=== PATIENT | female | born 1945 | race Caucasian/White ===

== ENCOUNTER 2018-07-03 07:24 | Outpatient (CLI) | payer OTHER, SELFPAY ==
[2018-07-03 08:35] LABS: Cholesterol 186 mg/dL (50-200); HDL Cholesterol 75 mg/dL (40-60); LDL CHOLESTEROL 99 mg/dL (<100); Triglyceride 58 mg/dL (30-150)
[2018-07-03 08:45] LABS: Anion Gap 8.7 mmol/L (3-11); BUN 23 mg/dL (7-18); CO2 28.3 mmol/L (21.0-32.0); CREATININE 1.01 mg/dL (0.55-1.02); Calcium 9.4 mg/dL (8.5-10.1); Chloride 105 mmol/L (98-107); Estimated GFR 54.03 (mL/min/1.73m2); Glucose 88 mg/dL (70-100); Potassium 4.7 mmol/L (3.5-5.1); Sodium 142 mmol/L (136-145)
== END 2018-07-03 07:44 ==
PROVIDERS: Urology; PCP Internal Medicine; Visit Provider Internal Medicine
DX: I10 Essential (primary) hypertension (principal); R31.29 Other microscopic hematuria
CPT/HCPCS: 36415; 80048; 80061; 83721; 82565

== ENCOUNTER 2018-07-06 01:36 | Outpatient (CLI) | payer OTHER, SELFPAY ==
--- NOTE | 2018-07-06 12:34 | DI.CT_ITS ---
SYMPTOMS/DIAGNOSIS: MICROSCOPIC HEMATURIA, R31.29, ? MASS OR STONE CT OF THE ABDOMEN AND PELVIS: Comparison is made with [id number]. Images were performed without IV contrast followed by IV contrast during the venous phase as well as 7 minute delayed images. No urinary tract calculi, mass or hydronephrosis are seen. There are no collecting system filling defects. The bladder is unremarkable. The kidneys show normal size and parenchymal thickness. The lung bases are clear. A small cyst is seen at the posterior right lobe of the liver. The gallbladder, spleen, pancreas and adrenals are unremarkable. Sigmoid diverticulosis is present. There is no evidence of diverticulitis. There is a moderate quantity of stool. The appendix appears normal. The uterus has a postmenopausal appearance. IMPRESSION: Negative CT of the abdomen and pelvis. No evidence of urinary tract calculi, mass or hydronephrosis.
[2018-07-06] MEDS: Omnipaque 350 MG/ML 100 ML BTL IJ (13:36)
[2018-07-06] MEDS: Normal Saline Flush 10 ML SYR IVP (13:36)
== END 2018-07-06 01:56 ==
PROVIDERS: PCP Internal Medicine; Visit Provider Urology
DX: R31.29 Other microscopic hematuria (principal); K76.89 Other specified diseases of liver; K57.30 Diverticulosis of large intestine without perforation or abscess without bleeding
CPT/HCPCS: 74178; J3490

== ENCOUNTER 2019-11-05 02:15 | Outpatient (CLI) | payer OTHER, SELFPAY ==
[2019-11-05 15:34] LABS: Bilirubin Negative (Negative); Blood Moderate (Negative); Clarity Clear (Clear); Glucose Negative (Negative); Ketones Trace mg/dL (Negative); Leukocyte Esterase Negative (Negative); Nitrite Negative (Negative); Specific Gravity >= 1.030 (1.005-1.025); Urobilinogen 0.2 EU/dL (Up TO 0.2); pH 5.5 (5-8)
[2019-11-05 15:54] LABS: Bacteria Negative HPF (Negative); C & S Indicated? No; Casts Negative LPF (Negative); Crystals Negative HPF (Negative); Epithelial Cells Negative HPF (Negative); Mucus Negative (Negative); Other Cells Negative (Negative); WBC 0-2 HPF (0-5)
[2019-11-05 16:09] LABS: Anion Gap 6.4 mmol/L (3-11); BUN 24 mg/dL (7-18); CO2 29.6 mmol/L (21.0-32.0); Calcium 9.7 mg/dL (8.5-10.1); Chloride 102 mmol/L (98-107); Estimated GFR 54.35 (mL/min/1.73m2); Glucose 80 mg/dL (74-106); Potassium 4.2 mmol/L (3.5-5.1); Sodium 138 mmol/L (136-145)
[2019-11-08 10:09] LABS: Hepatitis C Ab w Rflx HCV PCR Negative (Negative)
== END 2019-11-05 02:35 ==
PROVIDERS: Urology; PCP Internal Medicine; Visit Provider Internal Medicine
DX: I10 Essential (primary) hypertension (principal); R31.29 Other microscopic hematuria; Z11.59 Encounter for screening for other viral diseases
CPT/HCPCS: 36415; 80048; 86803; 81003; 81015

== ENCOUNTER 2019-12-15 01:26 | Outpatient (CLI) | payer OTHER, SELFPAY ==
--- NOTE | 2019-12-15 13:15 | DI.MAMMO_ITS ---
EXAM: MG MAMMO SCREENING 60 MIN DUR CLINICAL HISTORY: breast cancer screening Z85.3 PERSONAL HX BREAST CANCER TECHNIQUE: Mammograms were interpreted according to the usual protocol including computer analysis w [employer] CAD system, tomosynthesis and C-view imaging. COMPARISON: FINDINGS: Breasts are heterogeneously dense. Prior left lumpectomy noted. There is no mass or clumped microca lcification seen. Comparison with multiple previous mammograms including August 2017 shows no signifi cant interval change. IMPRESSION: No specific evidence of malignancy at this time. Routine screening examinations are suggested at yea rly intervals due to the history of breast carcinoma. Category: BI-RADS Cat 1 - Negative Breast Density - Category C - Heterogeneously dense
== END 2019-12-15 01:46 ==
PROVIDERS: PCP Internal Medicine; Visit Provider Internal Medicine
DX: Z12.31 Encounter for screening mammogram for malignant neoplasm of breast (principal); Z85.3 Personal history of malignant neoplasm of breast
CPT/HCPCS: 77063; 77067

== ENCOUNTER 2020-04-10 07:40 | Outpatient (REF) | payer OTHER, SELFPAY ==
[2020-04-12 17:54] LABS: COVID-19 RT-PCR Result NEGATIVE (Negative)
== END 2020-04-10 08:00 ==
LOC: LBO 07:40
PROVIDERS: PCP Internal Medicine; Visit Provider Nurse Practitioner Family
DX: Z11.59 Encounter for screening for other viral diseases (principal)
CPT/HCPCS: U0003

== ENCOUNTER 2021-02-19 08:30 | Outpatient (CLI) | payer OTHER, SELFPAY ==
--- NOTE | 2021-02-19 08:15 | DI.RAD_ITS ---
Exam(s) XR KNEE RT 4V AP,LAT,LYUBOV,PAT EXAM: XR KNEE RT 4V AP,LAT,LYUBOV,PAT CLINICAL HISTORY: injury. TECHNIQUE: 2D digital imaging was performed. COMPARISON: No exams were available for comparison FINDINGS: BONES: There is a longitudinal lucency at the lateral aspect of the patella suspicious for nondisplac ed fracture. No bony destructive lesion is seen. There is an enthesophyte at the superior aspect of the patella. Mild spurring is seen at the posterior patella. JOINTS: The knee is normally aligned. There is a small joint effusion. There is mild narrowing of th e lateral femoral tibial joint. SOFT TISSUE: Normal. IMPRESSION: Nondisplaced fracture of the patella. DATA REPOSITORY: RADIATION DOSE DELIVERED:
== END 2021-02-19 08:31 | disposition home or self-care (01) ==
LOC: DIORS 08:30
PROVIDERS: PCP Internal Medicine; Referring Provider Internal Medicine; Visit Provider Physician Assistant Surgical
DX: X58.XXXA Exposure to other specified factors, initial encounter; S82.024A Nondisplaced longitudinal fracture of right patella, initial encounter for closed fracture; M25.761 Osteophyte, right knee
CPT/HCPCS: 73564

== ENCOUNTER 2021-03-19 09:32 | Outpatient (CLI) | payer OTHER, MEDICARE, SELFPAY ==
--- NOTE | 2021-03-19 08:15 | DI.RAD_ITS ---
Exam(s) XR KNEE RT 1V EXAM: XR KNEE RT 1V CLINICAL HISTORY: right patella fracture. TECHNIQUE: 2D digital imaging was performed. COMPARISON: CR XR KNEE RT 4V AP,LAT,LYUBOV,PAT from 02/19/2021 FINDINGS: Single merchant's view of the right knee again reveals the previously described fracture line in the lateral facet. When compared to the merchant's view of 02/19/2021 the fracture line is still visible and indeed appears slightly wider at the present time. Clinically indicated additional views can be performed. IMPRESSION: DATA REPOSITORY: RADIATION DOSE DELIVERED:
== END 2021-03-19 09:33 | disposition home or self-care (01) ==
LOC: DIORS 09:33
PROVIDERS: PCP Internal Medicine; Referring Provider Internal Medicine; Visit Provider Physician Assistant
DX: S82.024D Nondisplaced longitudinal fracture of right patella, subsequent encounter for closed fracture with routine healing; W19.XXXD Unspecified fall, subsequent encounter
CPT/HCPCS: 99212; 73560

== ENCOUNTER 2021-03-20 03:58 | Outpatient (CLI) | payer MEDICARE, SELFPAY ==
[2021-03-20 08:10] LABS: Bilirubin Negative (Negative); Blood Moderate (Negative); Clarity Clear (Clear); Glucose Negative (Negative); Ketones Negative (Negative); Leukocyte Esterase Trace (Negative); Nitrite Negative (Negative); Urobilinogen 0.2 EU/dL (Up TO 0.2)
[2021-03-20 08:25] LABS: Bacteria Few HPF (Negative); C & S Indicated? Yes; Casts Negative LPF (Negative); Crystals Negative HPF (Negative); Epithelial Cells Few HPF (Negative); Mucus Trace (Negative); Other Cells Few Renal (Negative); RBC 0-2 HPF (0-2)
[2021-03-20 08:41] LABS: Anion Gap 6.1 mmol/L (3-11); BUN 24 mg/dL (7-18); CO2 30.9 mmol/L (21.0-32.0); CREATININE 1.1 mg/dL (0.55-1.02); Calcium 9.6 mg/dL (8.5-10.1); Calculated LDL 121 mg/dL (<100); Chloride 107 mmol/L (98-107); Cholesterol 204 mg/dL (<200); Estimated GFR 48.55 (mL/min/1.73m2); Glucose 90 mg/dL (74-106); HDL Cholesterol 72 mg/dL (40-60); Potassium 4.9 mmol/L (3.5-5.1); Sodium 144 mmol/L (136-145); Triglyceride 57 mg/dL (<150)
== END 2021-03-20 03:59 | disposition home or self-care (01) ==
LOC: LBO 03:58
PROVIDERS: Urology; PCP Internal Medicine; Visit Provider Internal Medicine
DX: I10 Essential (primary) hypertension (principal); R31.29 Other microscopic hematuria
CPT/HCPCS: 36415; 80048; 80061; 81003; 81015; 87086

== ENCOUNTER 2021-05-04 03:33 | Outpatient (CLI) | payer MEDICARE, SELFPAY ==
[2021-05-04 10:28] LABS: BUN 18 mg/dL (7-18); Calcium 9.4 mg/dL (8.5-10.1); Glucose 142 mg/dL (74-106); Sodium 139 mmol/L (136-145)
[2021-05-04 10:29] LABS: Anion Gap 6.4 mmol/L (3-11); CO2 29.6 mmol/L (21.0-32.0); Chloride 103 mmol/L (98-107)
== END 2021-05-04 03:34 | disposition home or self-care (01) ==
LOC: LBO 03:33
PROVIDERS: PCP Internal Medicine; Visit Provider Internal Medicine
DX: I10 Essential (primary) hypertension (principal)
CPT/HCPCS: 36415; 80048

== ENCOUNTER 2021-06-11 08:54 | Outpatient (CLI) | payer OTHER, MEDICARE, SELFPAY ==
--- NOTE | 2021-06-11 08:15 | DI.RAD_ITS ---
Exam(s) XR KNEE RT 1V EXAM: XR KNEE RT 1V INDICATION: history of patella fracture. COMPARISON: CR XR KNEE RT 1V from 03/19/2021 TECHNIQUE: 2D digital imaging was performed. FINDINGS: There has been continued healing at the fracture seen at the lateral aspect of the patella. No new a bnormalities. DATA REPOSITORY: RADIATION DOSE DELIVERED:
== END 2021-06-11 08:55 | disposition home or self-care (01) ==
LOC: DIORS 08:54
PROVIDERS: PCP Internal Medicine; Referring Provider Internal Medicine; Visit Provider Student in an Organized Health Care Education/Training Program
DX: S82.001D Unspecified fracture of right patella, subsequent encounter for closed fracture with routine healing (principal); X58.XXXD Exposure to other specified factors, subsequent encounter
CPT/HCPCS: 99212; 73560

== ENCOUNTER → 2021-11-29 01:46 | Outpatient (CLI) | payer MEDICARE, OTHER, SELFPAY ==
--- NOTE | 2021-11-29 07:45 | DI.DEXA_ITS ---
Exam(s) XR DEXA BONE DENSITY W/WO EDWINA EXAM: XR DEXA BONE DENSITY W/WO EDWINA CLINICAL HISTORY: f/u osteopenia,SCREENING FOR OSTEOPOROSIS IN POSTMENOPAUSAL WOMAN,Z78.0 TECHNIQUE: Routine DEXA evaluation of the lumbar spine, hip, or forearm. COMPARISON: Compared to prior DEXA scan April 2016 FINDINGS: Performed on a HoloPerfect Memory unit. Lateral image: No compression fracture evident. Lumbar Spine total T-score: -2.4. Prior reading in 2016 was -2.0 Hip total T-score:-2.1. Prior 2016 reading was -1.7. Independent reading at the level of the femoral neck yields at T-score of -2.2. Forearm total T-score: -2.4 IMPRESSION: Bone mineral density measures in the osteopenia range. Fracture risk is moderate. Note: Any spine fracture indicates 5x risk for subsequent spine fracture and 2x risk for subsequent h ip fracture. World Health Organization criteria for BMD interpretation classify patients: Normal...... T- Score at or above -1.0 Osteopenic... T- Score between -1.0 and -2.5 Osteoporosis... T-Score at or below -2.5
--- NOTE | 2021-11-29 07:45 | DI.MAMMO_ITS ---
Exam(s) MG MAMMO SCREENING 60 MIN DUR EXAM: MG MAMMO SCREENING 60 MIN DUR CLINICAL HISTORY: breast cancer screening,PERSONAL H/O BREAST CA,Z85.3. TECHNIQUE: Bilateral full field digital CC and MLO mammographic images were obtained with 3D tomosyn thesis and utilizing computer aided detection (CAD). Also performed additional spot compression view of the right breast. COMPARISON: Prior mammograms were reviewed, the most recent being November 2019. This patient has prior remote lumpectomy of the left breast, apparently 1989 FINDINGS: The fibroglandular tissue pattern is again noted be dense, this somewhat decreasing the sensitivity o f the mammogram for finding hidden underlying lesions. There are no new obvious radiographic findings in left breast. In medial aspect of right breast there is an asymmetric density appears slightly prominent studies. This persists on spot compression views. Ultrasound recommended. There are no malignant-appearing m icrocalcification groups is region nor elsewhere in either breast. There is no significant architectural distortion nor skin thickening-retraction. IMPRESSION: Dense bilateral fibroglandular tissue. Asymmetric densities posteromedially in the right breast. Sp ot compression views and ultrasound recommended BI-RADS Category 0 - Assessment Incomplete: Need additional imaging evaluation Breast Density - Category C - Heterogeneously dense Breast density Category C or D implies that the patient has dense breast tissue. Dense breast tissue can make it harder to find cancer on a mammogram. Dense breast tissue is also associated with an incr eased risk of breast cancer. This information about the result of the mammogram report was provided to the patient to raise their awareness. Use this report when you speak with the patient about their risks for breast cancer, which includes their family history. At that time, you may recommend additional screening tests (Ultrasoun d or MRI) as these tests may add significant information. A negative radiographic report should not delay biopsy if a dominant or clinically suspicious mass is present. Up to ten percent of cancers are not identified on mammography. A negative report may reinforce clinical impression. Adenosis and dense breasts may obscure an underlying neoplasm. False positive reports average 6 to 10%. Patient will receive a letter notifying them of these results.
== END ==
PROVIDERS: PCP Internal Medicine; Visit Provider Internal Medicine
DX: Z12.31 Encounter for screening mammogram for malignant neoplasm of breast (principal); Z13.820 Encounter for screening for osteoporosis; N64.89 Other specified disorders of breast; M85.80 Other specified disorders of bone density and structure, unspecified site; Z85.3 Personal history of malignant neoplasm of breast; Z78.0 Asymptomatic menopausal state; M94.9 Disorder of cartilage, unspecified
CPT/HCPCS: 77063; 77067; 77080

== ENCOUNTER → 2021-12-06 03:06 | Outpatient (CLI) | payer MEDICARE, SELFPAY ==
--- NOTE | 2021-12-06 09:30 | DI.US_ITS ---
Exam(s) US BREAST RT COMPLETE EXAM: US BREAST RT COMPLETE CLINICAL HISTORY: ASYMMETRIC DENSITIES POSTEROMEDIALLY IN RT BREAST, R92.8. TECHNIQUE: Complete ultrasound of the RIGHT breast was performed including all 4 quadrants, the retr oareolar region, and the ipsilateral axilla. COMPARISON: Prior mammograms were reviewed. This ultrasound is being performed pursuant to findings on recent mammogram of 11/29/2021. FINDINGS: There is no evidence of solid or significant cystic lesions in all 4 quadrants. No significant ultra sound findings the area described on the mammogram. IMPRESSION: Negative complete right breast ultrasound. Appropriate follow-up is repeat right breast mammogram in 6 months. BI-RADS Category 3 - 6 month - Probably Benign Finding: Recommend follow-up mammography in 6 months Breast Density - Category C - Heterogeneously dense Breast density Category C or D implies that the patient has dense breast tissue. Dense breast tissue can make it harder to find cancer on a mammogram. Dense breast tissue is also associated with an incr eased risk of breast cancer. This information about the result of the mammogram report was provided to the patient to raise their awareness. Use this report when you speak with the patient about their risks for breast cancer, which includes their family history. At that time, you may recommend additional screening tests (Ultrasoun d or MRI) as these tests may add significant information. A negative radiographic report should not delay biopsy if a dominant or clinically suspicious mass is present. Up to ten percent of cancers are not identified on mammography. A negative report may reinforce clinical impression. Adenosis and dense breasts may obscure an underlying neoplasm. False positive reports average 6 to 10%. Patient will receive a letter notifying them of these results.
== END ==
PROVIDERS: PCP Internal Medicine; Visit Provider Internal Medicine
DX: R92.2 Inconclusive mammogram (principal); R92.8 Other abnormal and inconclusive findings on diagnostic imaging of breast
CPT/HCPCS: 76642

== ENCOUNTER → 2021-12-20 07:58 | Outpatient (BNVA) | payer MEDICARE, SELFPAY | PROVIDERS: PCP Internal Medicine; Referring Provider Internal Medicine; Visit Provider Surgery | DX: Z12.11 Encounter for screening for malignant neoplasm of colon (principal) ==

== ENCOUNTER 2021-12-31 06:24 | Day surgery (SDC) | payer MEDICARE, SELFPAY ==
--- NOTE | 2021-12-30 18:43 | W.ANESPRE ---
General Info Date of Service Date Performed: 12/31/21 Height: 5 ft 7.5 in Weight: 58.173 kg Body Mass Index (BMI): 19.8 Surgical Procedure: Operation Date: 12/31/21 07:35 Proposed Procedure Side Surgeon p Colonoscopy Naya Abarca MD Meds Allergies and Home Medications Allergies Allergy/AdvReac Type Severity Reaction Status Date / Time Horse/Equine Containing Allergy Unknown Verified 12/27/21 12:55 Products Home Medication Medication Instructions Recorded EZ tears 1 PO 10/31/20 cyclosporine 0.05 % eye drops 1 drp ophthalmic (eye) Q12H 03/19/21 (Restasis MultiDose) Calcium 650mg with Vitamin C 500mg 1 cap PO DAILY 11/21/21 Soft Chew multivitamin gummy 1 cap PO DAILY 11/21/21 bisacodyl 5 mg tablet,delayed 5 mg PO ONCE #4 tabs 12/20/21 release (Dulcolax (bisacodyl)) polyethylene glycol 3350 17 17 g PO ONCE #238 grams 12/20/21 gram/dose oral powder amlodipine 5 mg tablet See Rx Instructions .Route 12/28/21 .COMPLEX #90 tabs losartan 25 mg tablet See Rx Instructions .Route 12/28/21 .COMPLEX #90 tabs Current Visit Medications: Current Medications Generic Name Dose Route Start Last Admin Trade Name Vannessa PRN Reason Stop Dose Admin Ringer's Solution 1,000 mls @ 80 mls/hr 12/31/21 06:00 IV 01/27/22 23:59 INFUSION ZEESHAN IV Miscellaneous Supplies 1 each 12/31/21 06:00 Iv Access IV 01/27/22 23:59 DIRECTED ZEESHAN Sodium Chloride 0 ml 12/31/21 06:00 Normal Saline Flush 10 Ml Syr IV 01/27/22 23:59 PRN PRN Sodium Chloride 0 ml 12/31/21 06:00 Normal Saline 10 Ml Vial IJ 01/27/22 23:59 DIRECTED PRN Sterile Water 0 ml 12/31/21 06:00 Water,Injection,Sterile 10 Ml Vial IJ 01/27/22 23:59 DIRECTED PRN PFSH Active Problems Active Problems: Problem Status Onset Code Risk for coronary artery disease greater than 20% in next 10 years per [place] score 2020 Z91.89 SARS-CoV-2 positive 11/02/21 U07.1 Screening for colon cancer Z12.11 Medical History Medical History Basal cell carcinoma (BCC) of [place]a n[place] Mohs micro[place]ic [place] [facility] [place] [facility] [place]gt dorsal nose Deviated nasal septum (06/13/16) Disorder of bone and cartilage, unspecified (08/23/11) T - 2.0 in 2016 Encounter for screening for other viral diseases Essential hypertension (11/03/13) Hypercholesterolemia Knee injury Personal history of breast cancer (08/23/11) Rhinitis, chronic (06/13/16) Right patella fracture Sensorineural hearing loss, unilateral (06/13/16) Skin lesion of left arm (03/09/15) excision left upper arm. squamous cell carcinoma, margins negative Surgical History Surgical History Breast, Lumpectomy (L) axillary node dissection, no isseus with lympadema- No issues with IV starts or BP Excision of skin on left upper extremity (03/09/15) Dr. Naya Abarca Final pathologic diagnosis: -Squamous cell carcinoma, well-differentiated, invasive -Margins negative for squamous cell carcinoma -Squamous cell carcinoma present approximately 1.0mm from closest (9 o'clock with suture designated 12 o'clock) margin. H/O Mohs micrographic surgery for skin cancer of left ala nasi. (basal cell carcinoma). 08/13/18 Open Carpal Tunnel release S/P colonoscopy Tonsillectomy and adenoidectomy Tobacco Smoking/Tobacco Use Status: Never Alcohol Alcohol Intake: current Alcohol intake frequency: a few times a month Substance Use Substance use: Never Substance use type: does not use Vital Signs and Lab Results Vital Signs Most Recent Vital Signs in EMR: Temp Pulse Resp BP Pulse Ox 36.6 C 60 16 111/73 100 12/31/21 06:33 12/31/21 06:33 12/31/21 06:33 12/31/21 06:33 12/31/21 06:33 Lab Results Blood Type / Crossmatch: No Data to Display Complete Blood Count: No Data to Display Complete Metabolic Panel: No Data to Display Liver Function Panel: No Data to Display Coagulation Panel: No Data to Display Cardiac Panel: No Data to Display Arterial Blood Gas: No Data to Display Venous Blood Gas: No Data to Display Pancreas Panel: No Data to Display Thyroid Panel: No Data to Display Infectious Disease: No Data to Display Blood Cultures: No Data to Display Toxicology Panel: No Data to Display Anesthesia Assessment and Plan Anesthesia History Personal History: No History of Anesthesia Complications Family History: No Family History of Anesthesia Complications Exercise Tolerance Exercise Tolerance: Metabolic Equivalents>4 Cardiac & Pulmonary Exam Cardiac Exam: Normal S1/S2 Heart Sounds Pulmonary Exam: Clear Bilateral Breath Sounds Implantable Cardiac Device Does patient have a Pacemaker or an ICD?: No Airway Exam Known Difficult Airway: No Mallampati Class: 2 Mouth Opening: Normal (> 3cm) Thyromental Distance: Greater than 3 cm Neck Range of Motion: Full ROM Neck Circumference: Normal Teeth Condition: Normal Dentition ASA Classification ASA Score: ASA 2 Emergency Case?: No NPO Status NPO Status: NPO Clears >2 hours, Solids >8 hours Anesthesia Plan Resuscitation Status: Full Code Anesthesia Technique: General Anesthesia Airway Planned: Natural Airway Monitors Used: Standard Monitors Preoperative Comments:: 76 yo female for screening colo. Sig PMHx: HTN (amlodipine, losartan),no other major.
--- NOTE | 2021-12-31 06:15 | COLE_ITS ---
Colonoscopy Report Date of procedure: 12/31/21 Pre-op diagnosis general: Colon Cancer Screening Post-op diagnosis procedure note: other (Diverticulosis) Procedure: Colonoscopy Surgeon: Naya Abarac Anesthesia Type: General:No Airway Estimated blood loss (mL): 0 Pathology: none sent Complications: None Disposition: same day Indications: Eduardo is here today to discuss another screening colonoscopy.? Her last colonoscopy was 10 years ago and was normal.? She has not had any changes in bowel habits, melena, hematochezia or unintentional weight loss.? She has no family history of colon cancer.? The procedure was explained in detail as well as the prep.? Risks, benefits and complications have been reviewed. Complications include but are not limited to bleeding, pain, perforation, missed small lesion/polyp, sore throat, aspiration and adverse reaction to the medi cations. Questions were entertained and answered to their satisfaction and they wished to proceed. No guarantees were given or implied. Proceed with colonoscopy under sedation Prep: Miralax/Dulcolax Procedure Start Time: :27 Procedure End Time: :47 Retraction Time: 11 minutes Findings: Bustamante diverticulosis Procedure Description: After informed consent was obtained the patient was taken to the procedure room and placed in a left decubitous position. Monitors were applied and a time out was done. The patients name, date of , procedure, allergies to medications and metal in their body was reviewed. The patient was then sedated. Once sedated and comfortable a rectal exam was done. External exam was normal. Internal exam revealed a normal sphincter tone and no palpable masses. The scope was then introduced and retro-flexed. No internal hemorrhoids, polyps or masses were identified on retro-flexion. The scope was then advanced to the cecum without difficulty. The ileocecal vlave and appendiceal orifice were identified. The prep was adequate. The scope was then slowly retracted over 11 minutes back into the rectum. There were no polyps. There was moderate bustamante- diverticulosis noted. The scope was removed and the patient was woken up and taken back to Same day surgery in stable condition. The patient tolerated the procedure well and there were no immediate complications.
--- NOTE | 2021-12-31 06:16 | W.PM.DSUDISC ---
Discharge Plan Disposition Patient Disposition: HOME Condition: Good Discharge Details Reason For Visit: colon cancer screening Attending Provider: Naya Abarca Primary Care Provider: Kina Corrales Home Meds and New Rx's Prescriptions: Continued Restasis MultiDose 0.05 % drops 1 drp ophthalmic (eye) Q12H Calcium 650mg with Vitamin C 500mg Soft Chew 1 cap PO DAILY multivitamin gummy 1 cap PO DAILY EZ tears capsule 1 PO Rx Instructions: for dry eyes amlodipine 5 mg tablet See Rx Instructions .ROUTE .COMPLEX Qty: 90 0RF Dose Instruction: TAKE 1 TABLET BY MOUTH DAILY Rx Instructions: TAKE 1 TABLET BY MOUTH DAILY losartan 25 mg tablet See Rx Instructions .ROUTE .COMPLEX Qty: 90 0RF Dose Instruction: TAKE 1 TABLET BY MOUTH DAILY Rx Instructions: TAKE 1 TABLET BY MOUTH DAILY Discontinued bisacodyl [Dulcolax (bisacodyl)] 5 mg tablet,delayed release (DR/EC) 5 mg PO ONCE Qty: 4 0RF Rx Instructions: Take according to provider's instructions for colonoscopy prep. polyethylene glycol 3350 17 gram/dose powder 17 g PO ONCE Qty: 238 0RF Rx Instructions: To be taken as directed by prescriber's office for colonoscopy prep. Discharge Instructions Instructions: Diverticulosis (DC) Additional Instructions: Findings: Diverticulosis Follow up: as needed Please call if you develop: fevers >101.5 Nausea or Vomiting Abdominal pain that is not transient Rectal bleeding that is more then a tbsp A hard abdomen and inability to pass gas DAY SURGERY UNIT POST ENDOSCOPY INSTRUCTIONS Instructions for everyone who is given Anesthesia: For your safety, please do the following for the next 24 Hours: a. Do not drive or operate dangerous equipment b. Do not drink alcohol beverages or use any recreational drugs for the first 24 hours or while taking pain medications. The medications in your body may have a reaction that can be dangerous. c. Do not make any important decisions or sign any important papers 1. Generally there are no restrictions on your activity after a day or so has gone by, but you may feel a bit fatigued for a few days. 2. After you arrive home you may have a light meal and return to a normal diet as you can tolerate it without feeling sick to your stomach. 3. After surgery, you may feel pain or discomfort. This should be only transient, but if it persists please contact your doctor. 4. If there are any questions regarding the findings of your procedure, please feel free to contact your doctor. 6. If you are unable to contact your doctor with a problem, contact the hospital at [phone]. 7. Continue all your regular medications unless directed otherwise. I understand the above instructions and have no questions. Signature of Patient or Responsible Adult Escort Date/Time Name of Responsible Adult Escort Signature of Nurse Date/Time Activity:: Activity as Tolerated Diet:: high fiber diet Discharge Orders Discharge Orders: Discharge Order (Routine); Ordered 12/31/21 Ordered By: Naya Abarca
[2021-12-31 06:33] VITALS: BP 111/73; PULSE 60; RESP 16; TEMP 36.6; O2SAT 100
[2021-12-31] MEDS: Lactated Ringers 1,000 ML 80 ML IV (07:02)
[2021-12-31 07:08] VITALS: BMI 19.8
[2021-12-31 07:57] VITALS: BP 106/66; PULSE 51; RESP 16; TEMP 36.4; O2SAT 97
--- NOTE | 2021-12-31 08:14 | W.ANESPOSTOP ---
Postoperative Evaluation Date, Time and Location Date Performed: 12/31/21 Time Performed: 08:05 Patient Location: Day Surgery Unit Vital Signs Most Recent Imported Vital Signs: Most Recent Vital Signs Temp Pulse Resp BP Pulse Ox 36.4 C L 51 L 16 106/66 97 12/31/21 07:57 12/31/21 07:57 12/31/21 07:57 12/31/21 07:57 12/31/21 07:57 Pain Score Most Recent Pain Score: Most Recent Pain Score Pain Level 0 12/31/21 07:57 Assessment Mental Status: Awake (Alert & Oriented to Patient Baseline) Airway and Respiratory Function: Patent airway with normal (patient baseline) respiratory exam Cardiovascular Function: Hemodynamically Stable Hydration Status: Adequately Hydrated Nausea & Vomiting: No Nausea or Vomiting Pain: Pt. Denies Any Pain Peripheral Nerve Block: Patient did not receive a nerve block
[2021-12-31 08:25] VITALS: BP 134/80; PULSE 47; RESP 16; TEMP 36.4; O2SAT 97
== END 2021-12-31 09:26 | disposition home or self-care (01) ==
PROVIDERS: PCP Internal Medicine; Visit Provider Surgery
PROC: 0DJD8ZZ Inspection of Lower Intestinal Tract, Via Natural or Artificial Opening Endoscopic (ICD-10-PCS; CPT 45378; principal; 2021-12-31 07:30)
DX: Z12.11 Encounter for screening for malignant neoplasm of colon (principal); K57.30 Diverticulosis of large intestine without perforation or abscess without bleeding; I10 Essential (primary) hypertension; E78.00 Pure hypercholesterolemia, unspecified
CPT/HCPCS: G0121

== ENCOUNTER 2022-06-11 01:14 | Outpatient (CLI) | payer MEDICARE, SELFPAY ==
--- NOTE | 2022-06-11 06:45 | DI.US_ITS ---
Exam(s) MG MAMMO DIAGNOSTIC UNI US BREAST RT COMPLETE EXAM: MG MAMMO DIAGNOSTIC UNI-RIGHT AND COMPLETE RIGHT BREAST ULTRASOUND CLINICAL HISTORY: 6 month follow up,ASYMMETRIC DENSITY. TECHNIQUE: Unilateral spot mammographic images were obtained with 3D tomosynthesis technique and uti lizing computer aided detection (CAD). Complete right breast ultrasound was also performed including all 4 quadrants as well as the axillary region. COMPARISON: Prior mammograms were reviewed, the most recent being November 2021. FINDINGS: DIAGNOSTIC RIGHT BREAST MAMMOGRAM: On spot compression view the previously described asymmetric density medially in the right breast is again less concerning in appearance. COMPLETE RIGHT BREAST ULTRASOUND: There is again no evidence of solid or significant cystic lesions in all 4 quadrants of the right pal ast. Scanning of the right axilla is negative for adenopathy. IMPRESSION: No radiographic evidence of malignancy in the right breast Negative complete right breast ultrasound Appropriate follow-up is to keep this patient on her yearly mammogram schedule, this implying the nex t bilateral mammogram would be in November or December 2022 The patient was informed of the findings and follow-up recommendations prior to leaving the [facility] today. BI-RADS Category 2 - Benign Findings Breast Density - Category C - Heterogeneously dense Breast density Category C or D implies that the patient has dense breast tissue. Dense breast tissue can make it harder to find cancer on a mammogram. Dense breast tissue is also associated with an incr eased risk of breast cancer. This information about the result of the mammogram report was provided to the patient to raise their awareness. Use this report when you speak with the patient about their risks for breast cancer, which includes their family history. At that time, you may recommend additional screening tests (Ultrasoun d or MRI) as these tests may add significant information. A negative radiographic report should not delay biopsy if a dominant or clinically suspicious mass is present. Up to ten percent of cancers are not identified on mammography. A negative report may reinforce clinical impression. Adenosis and dense breasts may obscure an underlying neoplasm. False positive reports average 6 to 10%. Patient will receive a letter notifying them of these results.
== END 2022-06-11 01:34 ==
PROVIDERS: PCP Internal Medicine; Visit Provider Internal Medicine
DX: R92.8 Other abnormal and inconclusive findings on diagnostic imaging of breast (principal); Z12.31 Encounter for screening mammogram for malignant neoplasm of breast
CPT/HCPCS: 76642; 77061; 77065; G0279

== ENCOUNTER 2022-12-19 03:12 | Outpatient (CLI) | payer MEDICARE, SELFPAY ==
--- NOTE | 2022-12-19 11:05 | DI.MAMMO_ITS ---
Exam(s) MG MAMMO SCREENING 60 MIN DUR EXAM: MG MAMMO SCREENING 60 MIN DUR CLINICAL HISTORY: breast cancer screening,PERSONAL H/O BREAST CA,Z85.3 TECHNIQUE: Mammograms were interpreted according to the usual protocol including computer analysis w [employer] CAD system, tomosynthesis and C-view imaging. COMPARISON: 2012 through 2021 FINDINGS: The breasts are composed of heterogeneously dense fibroglandular densities, Breast Density category C . No suspicious masses or suspicious microcalcifications are seen. No skin thickening or abnormal axillary lymph nodes are seen. There has been no significant change from prior exams. IMPRESSION: BI-RADS Category 1, Negative mammogram. Yearly screening mammography is recommended. Breast Density Category C, heterogeneously Dense. The mammogram demonstrates the patient's breast tissue is dense. Dense breast tissue is very common a nd is not abnormal but dense breast tissue can make it harder to find cancer on a mammogram. Also, de nse breast tissue may increase breast cancer risk. This information about the result of the mammogram report was provided to the patient to raise their awareness. Use this report when you speak with the patient about their risks for breast cancer, which includes their family history. At that time, you may recommend additional screening tests (Ultrasound or MRI) as they might be useful based on their r isk. A negative radiographic report should not delay biopsy if a dominant or clinically suspicious mass is present. Up to ten percent of cancers are not identified on mammography. A negative report may reinforce clinical impression. Adenosis and dense breasts may obscure an underlying neoplasm. False positive reports average 6 to 10%.
== END 2022-12-19 03:32 ==
LOC: DI 03:13
PROVIDERS: PCP Nurse Practitioner Adult Health; Visit Provider Nurse Practitioner Adult Health
DX: Z85.3 Personal history of malignant neoplasm of breast (principal); Z12.31 Encounter for screening mammogram for malignant neoplasm of breast
CPT/HCPCS: 77063; 77067

== ENCOUNTER 2022-12-26 13:19 | Emergency (ER) | payer MEDICARE, SELFPAY ==
[2022-12-26 13:43] VITALS: BP 131/66; PULSE 53; RESP 16; O2SAT 98
--- NOTE | 2022-12-26 15:45 | DI.RAD_ITS ---
Exam(s) XR FINGER RT MIDDLE EXAM: XR FINGER RT MIDDLE CLINICAL HISTORY: distal lac, dorsal; crush car door. TECHNIQUE: 2D digital imaging was performed. Three views. COMPARISON: No exams were available for comparison FINDINGS: BONES: Nondisplaced fracture at base of distal phalanx. No bony destructive lesion is seen. JOINTS: No dislocation present. SOFT TISSUE: Gauze is noted overlying the distal aspect of the finger. Soft tissue air. No foreign body. IMPRESSION: Nondisplaced fracture distal phalanx. DATA REPOSITORY: RADIATION DOSE DELIVERED:
[2022-12-26] MEDS: Lidocaine/Epinephri/Tetracaine Topical Gel 3 ML TP (15:55)
--- NOTE | 2022-12-26 16:01 | ED.GENADUL_ITS ---
Discharge Plan Disposition Patient Disposition: Home Condition: Improving Discharge Details Clinical Impression: Finger laceration, Phalanx, distal fracture of finger Primary Care Provider: Sarah Zhang ED Provider: Alvaro Pearson Home Meds and New Rx's Prescriptions: New cephalexin 500 mg capsule 500 mg PO QID 3 Days Qty: 12 0RF No Action Restasis MultiDose 0.05 % drops 1 drp ophthalmic (eye) Q12H Calcium 650mg with Vitamin C 500mg Soft Chew 1 cap PO DAILY multivitamin gummy 1 cap PO DAILY Caltrate 600 plus D 600 mg-20 mcg (800 unit) tablet,chewable 1 tab PO BID Qty: 180 0RF EZ tears capsule 1 PO Rx Instructions: for dry eyes amlodipine 5 mg tablet See Rx Instructions .ROUTE .COMPLEX Qty: 90 3RF Dose Instruction: TAKE 1 TABLET BY MOUTH DAILY Rx Instructions: TAKE 1 TABLET BY MOUTH DAILY losartan 25 mg tablet See Rx Instructions .ROUTE .COMPLEX Qty: 90 3RF Dose Instruction: TAKE 1 TABLET BY MOUTH DAILY Rx Instructions: TAKE 1 TABLET BY MOUTH DAILY rosuvastatin 5 mg tablet 5 mg PO .every other day Qty: 45 3RF Discharge Instructions Instructions: Finger Fracture (ED), Finger Laceration (ED) Additional Instructions: Please keep wound clean and dry; please return for any signs of poor healing or signs of infection. Medical Decision Making 77-year-old female presents with 2 cm linear laceration to dorsal aspect of third distal phalanx with exposed subcutaneous tissue, no exposed neurovascular structures, flexion both distally and proximally intact, neurovascular exam of limb intact, Tdap up-to-date. Will apply topical anesthetic, will irrigate extensively Will obtain screening x-ray to assess for phalangeal fracture. Low suspicion for tendon involvement given normal examination. Will primarily closed with simple interrupted sutures. Home care instructions and return precautions to be given 17: 11 nondisplaced distal phalanx fracture, given history and physical and wound exploration it does not appear that the laceration communicates with the fracture however given location and potential for communication we will start empiric Keflex, will irrigate extensively and closed primarily. Will be placed in finger splint. Home care instructions and return precautions to be given 17: 47 wound irrigated, 3 x 4-0 Vicryl simple interrupted sutures, surgical glue applied to seal wound, patient started on prophylactic Keflex given nature of wound and underlying fracture. Will be placed in finger splint. Home care i nstructions and return precautions to be given. HPI General Date/Time Provider Initiated Documentation: 12/26/22 15:42 . HPI Narrative: 77-year-old female presents after accidentally slamming her finger in the car door, sustaining laceration to third digit of her right hand. Up-to-date on Tdap Related Data Home Medications Medication Instructions Recorded Confirmed EZ tears 1 PO 10/31/20 12/20/21 cyclosporine 0.05 % eye drops 1 drp ophthalmic (eye) Q12H 03/19/21 10/09/22 (Restasis MultiDose) Calcium 650mg with Vitamin C 500mg 1 cap PO DAILY 11/21/21 10/09/22 Soft Chew multivitamin gummy 1 cap PO DAILY 11/21/21 12/31/21 amlodipine 5 mg tablet See Rx Instructions .Route 07/04/22 10/09/22 .COMPLEX #90 tabs losartan 25 mg tablet See Rx Instructions .Route 07/04/22 10/09/22 .COMPLEX #90 tabs calcium carbonate 600 mg-vitamin 1 tab PO BID #180 tabs 10/09/22 10/09/22 D3 20 mcg (800 unit) chewable tablet (Caltrate 600 plus D) rosuvastatin 5 mg tablet 5 mg PO .every other day #45 tabs 10/17/22 cephalexin 500 mg capsule 500 mg PO QID 3 days #12 caps 12/26/22 Previous Rx's Medication Instructions Recorded amlodipine 5 mg tablet See Rx Instructions .Route 07/04/22 .COMPLEX #90 tabs losartan 25 mg tablet See Rx Instructions .Route 07/04/22 .COMPLEX #90 tabs calcium carbonate 600 mg-vitamin 1 tab PO BID #180 tabs 10/09/22 D3 20 mcg (800 unit) chewable tablet (Caltrate 600 plus D) rosuvastatin 5 mg tablet 5 mg PO .every other day #45 tabs 10/17/22 cephalexin 500 mg capsule 500 mg PO QID 3 days #12 caps 12/26/22 Allergies Allergy/AdvReac Type Severity Reaction Status Date / Time Horse/Equine Containing Allergy Unknown Verified 12/26/22 13:43 Products General Stated Complaint: Orthopedic AMIRA: 4 Review of Systems Narrative: Review of Systems Constitutional: negative Eyes: negative ENT: negative Cardiovascular: negative Respiratory: negative Gastrointestinal: negative : negative Musculoskeletal: negative Skin: Finger laceration Neurologic: negative Psych: negative PFSH All Active Problems (Updated 12/26/22 @ 17:49 by Alvaro Pearson MD) Finger laceration (Acute) Phalanx, distal fracture of finger (Acute) History of basal cell carcinoma (BCC) (Acute) Disorder of bone and cartilage, unspecified (Acute 08/23/11) T - 2.0 in 2016 Hypercholesterolemia (Acute) Essential hypertension (Chronic 11/03/13) Personal history of breast cancer (Chronic 08/23/11) s/p XRT; cont with mammography Risk for coronary artery disease greater than 20% in next 10 years per [place] score (Chronic 2020) 2020: 19.5% Screening for colon cancer (Acute ~2021) Medical History Basal cell carcinoma (BCC) of ala nasi (~2020) Mohs micrographic surgery. [facility] [place] 08/13/18. Mohs micrographic surgery, [facility] [place] 06/21/21 rgt dorsal nose Deviated nasal septum (06/13/16) Encounter for screening for other viral diseases Knee injury Rhinitis, chronic (06/13/16) Right patella fracture SARS-CoV-2 positive (11/02/21) Sensorineural hearing loss, unilateral (06/13/16) Skin lesion of left arm (03/09/15) excision left upper arm. squamous cell carcinoma, margins negative Surgical History Breast, Lumpectomy (L) axillary node dissection, no isseus with lympadema- No issues with IV starts or BP Excision of skin on left upper extremity (03/09/15) Dr. Naya Abarca Final pathologic diagnosis: -Squamous cell carcinoma, well-differentiated, invasive -Margins negative for squamous cell carcinoma -Squamous cell carcinoma present approximately 1.0mm from closest (9 o'clock with suture designated 12 o'clock) margin. H/O Mohs micrographic surgery for skin cancer of left ala nasi. (basal cell carcinoma). 08/13/18 Open Carpal Tunnel release S/P colonoscopy (~2021) Tonsillectomy and adenoidectomy Family History Mother , Old age Heart disease Diabetes Father , cardiac late 60s (nicotine) Heart disease heavy smoker Hypertension Aunt , 's; longevity in multiple relatives No problems noted. Social History Smoking/Tobacco Use Status: Never Smoking risk assessment performed?: Yes Alcohol Intake: current Alcohol Intake frequency: a few times a month Alcohol type: hard liquor Drug use: Never Substance use type: does not use Household members: spouse Housing: house Number of Children: 2 Communication Needs: Hard of Hearing Do you need help understanding health information?: Never current occupation: ASSISTANT COACH Do you think of yourself as: straight/heterosexual Current gender identity: female What is your relationship status?: Panel score (0-1 are the most socially isolated patients): 1 What type of physical activity do you participate in: walking Frequency: daily Seatbelt use: always Drive intox or ride w/intox 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 Working smoke detector in home: Yes Carbon monox detector in home: Yes Do you feel safe at home: Yes Do you feel safe in your relationship?: Yes Exam Narrative Exam Narrative: Physical Examination General: alert, awake, cooperative, resting comfortably, no acute distress HEENT: normocephalic, atraumatic; PERRL, EOM intact, conjunctiva normal; no nasal discharge; moist mucous membranes, oral and pharyngeal mucosa normal, tolerating secretions Neck: supple, trachea midline; full ROM Chest: normal to inspection Extremities: 2 cm linear laceration to dorsal aspect of distal phalanx of third digit of right hand, full flexion both proximally and distally intact sensation intact nailbed uninvolved, median radial and ulnar nerve distribution sensory exam intact, radial pulse intact. Remaining fingers and hand neurovascular exam intact Psych: Appropriate mood and affect Course Vital Signs Vital signs: Vital Signs Pulse 53 L 12/26/22 13:43 Respiratory Rate 16 12/26/22 13:43 Blood Pressure 131/66 12/26/22 13:43 Pulse Oximetry 98 12/26/22 13:43 Temperature Source Skin 12/26/22 13:43 Pulse 53 L 12/26/22 13:43 Respiratory Rate 16 12/26/22 13:43 Blood Pressure 131/66 12/26/22 13:43 Blood Pressure Position Sitting 12/26/22 13:43 Pulse Oximetry 98 12/26/22 13:43 Oxygen Delivery Method Room Air 12/26/22 13:43 Oxygen Flow Rate 0 12/26/22 13:43 Pain Level 1 12/26/22 13:43 Procedures Laceration Laceration 1: Site: hand Side (If applicable): right Size (cm): 2 Description: linear Depth: simple, single layer Local Anesthetic: other anesthetic (L ET ) Pre-repair: wound explored and irrigated extensively Skin layer closed with: vicryl Size (cm): 4-0 Number of sutures: 3 Technique: simple, interrupted
[2022-12-26] MEDS: Cephalexin 500 MG CAP PO (16:53)
== END 2022-12-26 18:05 | disposition home or self-care (01) ==
PROVIDERS: Emergency Provider Emergency Medicine; PCP Nurse Practitioner Adult Health
DX: S62.632A Displaced fracture of distal phalanx of right middle finger, initial encounter for closed fracture; S61.212A Laceration without foreign body of right middle finger without damage to nail, initial encounter; W22.8XXA Striking against or struck by other objects, initial encounter
CPT/HCPCS: 12001; 73140

== ENCOUNTER → 2023-07-24 10:27 | Outpatient (CLI) | payer MEDICARE, SELFPAY ==
--- NOTE | 2023-07-24 08:56 | DI.RAD_ITS ---
Exam(s) XR HIP PELVIS ADULT BL EXAM: XR HIP PELVIS ADULT BL CLINICAL HISTORY: Fall 07/10 with pain to R hip since then w/ WB M25.551 W19.XXXA FALL M85.80. TECHNIQUE: 2D digital imaging was performed. COMPARISON: No exams were available for comparison FINDINGS: 3 views No evidence of pelvic fracture. No hip joint space narrowing. No osteophytes. No osseous lesions. Incidentally noted is a somewhat abnormal bowel gas pattern in the left side of the pelvis probably i ndicating element of enteritis. IMPRESSION: No acute osseous findings in the pelvis and hips. Abnormal bowel gas pattern. DATA REPOSITORY: RADIATION DOSE DELIVERED:
== END ==
PROVIDERS: PCP Nurse Practitioner Adult Health; Visit Provider Nurse Practitioner Adult Health
DX: M25.551 Pain in right hip (principal); W19.XXXA Unspecified fall, initial encounter
CPT/HCPCS: 73521

== ENCOUNTER 2024-03-24 02:09 | Outpatient (CLI) | payer MEDICARE, SELFPAY ==
[2024-03-24 10:11] LABS: Anion Gap 5.5 mmol/L (3-11); BUN 22 mg/dL (7-18); CO2 31.5 mmol/L (21.0-32.0); Calcium 9.8 mg/dL (8.5-10.1); Calculated LDL 63 mg/dL (<100); Chloride 104 mmol/L (98-107); Cholesterol 146 mg/dL (<200); Estimated GFR 58.02 (mL/min/1.73m2); Glucose 85 mg/dL (74-106); HDL Cholesterol 72 mg/dL (40-60); Potassium 4.9 mmol/L (3.5-5.1); Sodium 141 mmol/L (136-145); Triglyceride 57 mg/dL (<150)
== END 2024-03-24 02:10 | disposition home or self-care (01) ==
LOC: LBO 02:09
PROVIDERS: PCP Nurse Practitioner Adult Health; Referring Provider Nurse Practitioner Adult Health; Visit Provider Nurse Practitioner Adult Health
DX: I10 Essential (primary) hypertension (principal); E78.00 Pure hypercholesterolemia, unspecified
CPT/HCPCS: 36415; 80048; 80061

== ENCOUNTER 2024-04-16 00:12 | Outpatient (CLI) | payer MEDICARE, SELFPAY ==
--- NOTE | 2024-04-16 06:45 | DI.MAMMO_ITS ---
Exam(s) MG MAMMO SCREENING 60 MIN DUR EXAM: MG MAMMO SCREENING 60 MIN DUR CLINICAL HISTORY: breast cancer screening,personal h/o breast ca,z85.3. TECHNIQUE: Bilateral full field digital CC and MLO mammographic images were obtained with 3D tomosyn thesis and utilizing computer aided detection (CAD). COMPARISON: Prior mammograms were reviewed. Prior ultrasound reviewed FINDINGS: Fibroglandular tissue pattern is again noted be moderately dense, this somewhat decreasing the sensit ivity of the mammogram for finding hidden underlying lesions. Some mild asymmetry in breast size is again noted, this related to remote left breast lumpectomy. Asymmetric densities are again noted in both breasts and appear unchanged. There are no obvious new spiculated masses nor new malignant appearing microcalcification groups. There is no significant architectural distortion nor skin thickening-retraction. IMPRESSION: Dense bilateral fibroglandular tissue. Stable benign-appearing findings. No radiographic evidence o f malignancy. BI-RADS Category 2 - Benign Findings Breast Density - Category C - Heterogeneously dense Breast density Category C or D implies that the patient has dense breast tissue. Dense breast tissue can make it harder to find cancer on a mammogram. Dense breast tissue is also associated with an incr eased risk of breast cancer. This information about the result of the mammogram report was provided to the patient to raise their awareness. Use this report when you speak with the patient about their risks for breast cancer, which includes their family history. At that time, you may recommend additional screening tests (Ultrasoun d or MRI) as these tests may add significant information. A negative radiographic report should not delay biopsy if a dominant or clinically suspicious mass is present. Up to ten percent of cancers are not identified on mammography. A negative report may reinforce clinical impression. Adenosis and dense breasts may obscure an underlying neoplasm. False positive reports average 6 to 10%. Patient will receive a letter notifying them of these results.
== END 2024-04-16 00:32 ==
LOC: DI 00:12
PROVIDERS: PCP Nurse Practitioner Adult Health; Visit Provider Nurse Practitioner Adult Health
DX: Z85.3 Personal history of malignant neoplasm of breast (principal); Z12.31 Encounter for screening mammogram for malignant neoplasm of breast
CPT/HCPCS: 77063; 77067

== ENCOUNTER → 2025-05-23 03:44 | Outpatient (CLI) | payer MEDICARE, SELFPAY ==
--- NOTE | 2025-05-23 06:45 | DI.MAMMO_ITS ---
Exam(s) MG MAMMO SCREENING 60 MIN DUR EXAM: MG MAMMO SCREENING 60 MIN DUR CLINICAL HISTORY: breast cancer screening,personal h/o breast ca,z85.3,z12.31. TECHNIQUE: Bilateral full field digital CC and MLO mammographic images were obtained with 3D tomosynthesis and utilizing computer aided detection (CAD). COMPARISON: Prior mammograms were reviewed. There has been prior left lumpectomy. FINDINGS: There has been no significant change in the appearance and distribution of the fibroglandular tissue which is again noted be moderately dense.. There are obvious no new spiculated masses nor new malignant appearing microcalcification groups. Benign micro and macro calcifications are again noted bilaterally. Amount of architectural distortion the lumpectomy site of the left breast is unchanged. IMPRESSION: Dense bilateral fibroglandular tissue. Stable appearance of left breast lumpectomy site. No radiographic evidence of malignancy. BI-RADS Category 1 - Negative Breast Density - Category C - The breast are heterogeneously dense, which may obscure small masses. Breast density Category C or D implies that the patient has dense breast tissue. Dense breast tissue can make it harder to find cancer on a mammogram. Dense breast tissue is also associated with an increased risk of breast cancer. This information about the result of the mammogram report was provided to the patient to raise their awareness. Use this report when you speak with the patient about their risks for breast cancer, which includes their family history. At that time, you may recommend additional screening tests (Ultrasound or MRI) as these tests may add significant information. A negative radiographic report should not delay biopsy if a dominant or clinically suspicious mass is present. Up to ten percent of cancers are not identified on mammography. A negative report may reinforce clinical impression. Adenosis and dense breasts may obscure an underlying neoplasm. False positive reports average 6 to 10%. Patient will receive a letter notifying them of these results.
== END ==
LOC: DI 03:45
PROVIDERS: PCP Nurse Practitioner Adult Health; Visit Provider Nurse Practitioner Adult Health
DX: Z85.3 Personal history of malignant neoplasm of breast (principal); Z12.31 Encounter for screening mammogram for malignant neoplasm of breast; R92.323 Mammographic fibroglandular density, bilateral breasts
CPT/HCPCS: 36415; 77063; 77067; 80048; 80061

== ENCOUNTER 2025-05-23 04:22 | Outpatient (CLI) | payer MEDICARE, SELFPAY ==
[2025-05-23 09:27] LABS: Anion Gap 6.5 mmol/L (3-11); BUN 24 mg/dL (9-23); CO2 30.5 mmol/L (20.0-31.0); Calcium 10.0 mg/dL (8.3-10.6); Chloride 107 mmol/L (98-107); Cholesterol 169 mg/dL (<200); Glucose 96 mg/dL (74-106); HDL Cholesterol 58 mg/dL (>40); Potassium 4.4 mmol/L (3.5-5.1); Sodium 144 mmol/L (136-145)
== END 2025-05-23 04:23 | disposition home or self-care (01) ==
LOC: LBO 04:22
PROVIDERS: PCP Nurse Practitioner Adult Health; Visit Provider Nurse Practitioner Adult Health
DX: E78.00 Pure hypercholesterolemia, unspecified (principal); I10 Essential (primary) hypertension
CPT/HCPCS: 36415; 80048; 80061